=== PATIENT | female | born 1950 | race Caucasian/White ===

== ENCOUNTER 2020-10-26 08:46 | Outpatient (CLI) | payer MEDICARE | END 2020-10-26 08:47 | disposition home or self-care (01) | LOC: CSHULT 08:46 | PROVIDERS: ATTEND Internal Medicine | DX: M81.0 Age-related osteoporosis without current pathological fracture (principal); R92.2 Inconclusive mammogram; M85.88 Other specified disorders of bone density and structure, other site; R92.8 Other abnormal and inconclusive findings on diagnostic imaging of breast | CPT/HCPCS: 77080 ==

== ENCOUNTER 2021-05-24 21:43 | Emergency (ER) | payer OTHER, MEDICARE ==
[2021-05-24] MEDS ORDERED: Morphine 4 MG/ML VIAL ONE (23:41)
== END 2021-05-25 01:15 | disposition home or self-care (01) ==
LOC: CSHERS 21:43
DX: S82.002A Unspecified fracture of left patella, initial encounter for closed fracture (principal); Z79.01 Long term (current) use of anticoagulants; Z79.899 Other long term (current) drug therapy; W01.0XXA Fall on same level from slipping, tripping and stumbling without subsequent striking against object, initial encounter
CPT/HCPCS: 96374; J2270

== ENCOUNTER 2024-11-20 10:07 | Outpatient (CLI) | payer MEDICARE | END 2024-11-20 10:08 | disposition home or self-care (01) | LOC: CSHMAMMO 10:07 | PROVIDERS: ATTEND Family Medicine | DX: Z12.31 Encounter for screening mammogram for malignant neoplasm of breast (principal); Z78.0 Asymptomatic menopausal state; M85.88 Other specified disorders of bone density and structure, other site; N63.10 Unspecified lump in the right breast, unspecified quadrant | CPT/HCPCS: 77063; 77067; 77080 ==

== ENCOUNTER 2024-11-26 13:10 | Outpatient (CLI) | payer MEDICARE | END 2024-11-26 13:11 | disposition home or self-care (01) | LOC: CSHULT 13:10 | PROVIDERS: ATTEND Family Medicine | DX: N63.10 Unspecified lump in the right breast, unspecified quadrant (principal) ==